=== PATIENT | female | born 1990 | race Two or more races ===

== ENCOUNTER 2024-11-28 14:03 | Emergency (ER) | payer OTHER ==
[~2024-11-28] VITALS: Ht 152.4 cm; Wt 63.0 kg
[2024-11-28] MEDS ORDERED: KEPPRA500 MG PO (15:43)
[2024-11-28] MEDS ORDERED: KEPPRA XR500 MG PO (15:44)
[2024-11-28 16:43] LABS: BASO % 1.2 % (0.1-1.2); EOS # 0.07 (0.04-0.54); EOS % 0.8 % (0.7-7.0); LYMPH # 6.38 (1.18-3.74); LYMPH % 71.2 % (19.3-53.1); MEAN PLATELET VOLUME 11.00 fl (9.4-12.4); MONO # 0.54 (0.24-0.82); MONO % 6.0 % (4.7-12.5); NEUT # 1.83 (1.56-6.13); NEUT % 20.5 % (34.0-71.1); RED CELL DISTRIBUTION WIDTH 14.6 % (11.6-14.4)
[2024-11-28 17:04] LABS: INR 1.19
[2024-11-28 17:05] LABS: COVID-19 AG NEGATIVE (NEGATIVE)
[2024-11-28 17:09] LABS: ALT/SGPT 142.0 U/L (12-78); AST/SGOT 93.0 U/L (15-37); BILIRUBIN TOTAL 0.45 mg/dL (0.3-1.2); BUN CREA RATIO 20.0 (7.0-25.0); CREATININE SERUM 0.6 mg/dL (0.55-1.02); GFR 114.43; GLOBULINA 4.0 G/DL (2.4-3.5); GLUCOSE FASTING 101.0 mg/dL (65-100); OSMOLALITY SERUM 277.0 MOSM/KG (275-295)
[2024-11-28 17:11] LABS: ALT/SGPT 145 U/L (12-78); AST/SGOT 93 U/L (15-37); LDH 496 U/L (84-246); PHOSPHOKINASE CREATININE 74 U/L (26-192)
[2024-11-28 17:14] LABS: LYMPHOCYTE MAN 45.0 %; MONOCYTE MAN 9.0 %; NEUTROPHILS MAN 21.0 %
[2024-11-28 17:26] LABS: URINE APPEARANCE Cloudy; URINE BILIRRUBIN Small (NEGATIVE); URINE BLOOD Negative; URINE COLOR Dark Yellow; URINE GLUCOSE Negative (NEGATIVE); URINE KETONE Trace (NEGATIVE); URINE LEUKOCYTE Negative; URINE NITRATE Negative; URINE PROTEIN 30 (NEGATIVE); URINE UROBILINOGEN 1.0 E.U./dl
[2024-11-28 17:27] LABS: URINE BACTERIA 203.9 uL (0.0-1933); URINE EPITHELIAL CELLS 81.9 uL (0.0-38.8); URINE RBC 49.8 uL (0.0-20.8); URINE WBC 7.6 uL (0.0-23.2)
[2024-11-28 18:23] LABS: TYPE CELLS SQUAMOUS; URINE CAST 0.14 uL (0.0-1.40); URINE MUCUS MODERATE; URINE YEAST FEW /hpf
[2024-11-28] MEDS ORDERED: TUSNEL LIQUID178 ML PO (19:07)
[2024-11-28] MEDS ORDERED: OSEL75CA PO (19:07)
[2024-11-28] MEDS ORDERED: ZYRTEC10 MG PO (19:07)
== END 2024-11-28 19:44 | disposition home or self-care (01) ==
LOC: ER 14:40
PROVIDERS: General Practice
DX: R07.9 Chest pain, unspecified (principal); R06.02 Shortness of breath; Z20.822 Contact with and (suspected) exposure to COVID-19